=== PATIENT | female | born 1975 | race Caucasian/White ===

== ENCOUNTER 2017-01-13 18:34 | Emergency (ER) | payer MEDICAID ==
--- NOTE | 2017-01-13 18:46 | Emergency Department Record ---
History of Present Illness - General Chief complaint: Extremity Problem Stated complaint: LEFT ARM PAIN Time Seen by Provider: 01/13/17 18:45 Source: Patient - History of Present Illness Initial comments: The patient states that she has had pain in her elbow region of her arm on and off for 3-4 months. It worsens when she tries to pick remover heavy things with her left arm. she denies direct injury, but lifting against weight worsens her pain. She has tried excedrin for pain without relief. She was seen at another facility yesterday, got an xray, but left after waiting for 3 hours to be seen by a Dr. - Related Data Previous Rx's Medication Instructions Recorded Ibuprofen [Motrin] 800 mg PO Q8H #30 tab 01/13/17 Allergies Allergy/AdvReac Type Severity Reaction Status Date / Time No Known Drug Allergies Allergy Verified 01/13/17 18:40 Review of Systems Reviewed: No additional complaints except as noted below Constitutional: Reports: As per HPI. Denies: Chills, Fever, Malaise, Night sweats, Weakness, Weight change Eyes: Reports: As per HPI. Denies: Eye discharge, Eye pain, Photophobia, Vision change ENT: Reports: As per HPI. Denies: Congestion, Dental pain, Ear pain, Epistaxis , Hearing loss, Throat pain Respiratory: Reports: As per HPI. Denies: Cough, Dyspnea, Hemoptysis, Stridor, Wheezes Cardiovascular: Reports: As per HPI. Denies: Arrhythmia, Chest pain, Dyspnea on exertion, Edema, Murmurs, Orthopnea, Palpitations, Paroxysmal nocturnal dyspnea, Rheumatic Fever, Syncope Endocrine: Reports: As per HPI. Denies: Fatigue, Heat or cold intolerance, Polydipsia, Polyuria Gastrointestinal: Reports: As per HPI. Denies: Abdominal pain, Constipation, Diarrhea, Hematemesis, Hematochezia, Melena, Nausea, Vomiting Genitourinary: Reports: As per HPI. Denies: Abnormal menses, Discharge, Dyspareunia, Dysuria, Frequency, Hematuria, Incontinence, Retention, Urgency Musculoskeletal: Reports: As per HPI. Denies: Arthralgia, Back pain, Gout, Joint swelling, Myalgia, Neck pain Skin: Reports: As per HPI. Denies: Bruising, Change in color, Change in hair/ nails, Lesions, Pruritus, Rash Neurological: Reports: As per HPI. Denies: Abnormal gait, Confusion, Headache, Numbness, Paresthesias, Seizure, Tingling, Tremors, Vertigo, Weakness Psychiatric: Reports: As per HPI. Denies: Anxiety, Auditory hallucinations, Depression, Homicidal thoughts, Suicidal thoughts, Visual hallucinations Hematological/Lymphatic: Reports: As per HPI. Denies: Anemia, Blood Clots, Easy bleeding, Easy bruising, Swollen glands Physical Exam - General General Appearance: Alert, Oriented x3, Cooperative, No acute distress - Head Head exam: Normal inspection - Eye Eye exam: Normal appearance, PERRL Pupils: Normal accommodation - ENT ENT exam: Normal exam, Mucous membranes moist, Normal external ear exam, Normal orophraynx, TM's normal bilaterally Ear exam: Normal external inspection. negative: External canal tenderness Nasal Exam: Normal inspection. negative: Discharge, Sinus tenderness Mouth exam: Normal external inspection, Tongue normal Teeth exam: Normal inspection. negative: Dental caries Throat exam: Normal inspection. negative: Tonsillar erythema, Tonsillar exudate - Neck Neck exam: Normal inspection, Full ROM. negative: Tenderness - Respiratory Respiratory exam: Normal lung sounds bilaterally. negative: Respiratory distress - Cardiovascular Cardiovascular Exam: Regular rate, Normal rhythm, Normal heart sounds - GI/Abdominal GI/Abdominal exam: Soft, Normal bowel sounds. negative: Tenderness - Rectal Rectal exam: Deferred - exam: Deferred - Extremities Extremities exam: Normal inspection, Full ROM, Normal capillary refill, Tenderness (no point tenderness or bony tenderness. Painful when flexed against resistance over lateral epicondyl region of left elbow; CMs intact distally.) - Back Back exam: Reports: Normal inspection, Full ROM. Denies: Muscle spasm, Rash noted, Tenderness - Neurological Neurological exam: Alert, Normal gait, Oriented X3, Reflexes normal - Psychiatric Psychiatric exam: Normal affect, Normal mood - Skin Skin exam: Dry, Intact, Normal color, Warm Medical Decision Making - Management Options MDM Management: No Additional Work-up Planned Disposition Disposition: Discharge Clinical Impression: Tendinitis of left elbow Disposition: Home, Self-Care Condition: (1) Good Instructions: Tennis Elbow (ED), Tendinitis (ED) Additional Instructions: Jeffery wrap to left elbow. NO lifting with left arm for 1-2 weeks. Motrin 800 three times daily with food/antacid. Call PCP for recheck in7-10 days. Prescriptions: Ibuprofen [Motrin] 800 mg PO Q8H #30 tab Forms: Patient Portal Access Quality - Quality Measures Quality Measures: N/A - Blood Pressure Screening Does Patient Have Any of the Following: No Blood Pressure Classification: Hypertensive Reading Systolic Measurement: 140 Diastolic Measurement: 97 Screening for High Blood Pressure: < Pre-Hypertensive BP, F/U Documented > [ G8950] Pre-Hypertensive Follow-up Interventions: Follow-up with rescreen every year.
[2017-01-13] MEDS ORDERED: METHYLPREDNISOLONE PF 125MG/VIAL IM ONE (18:57)
[2017-01-13] MEDS ORDERED: KETOROLAC 30 MG/ML VIAL IM ONE (18:57)
== END 2017-01-13 19:33 | disposition home or self-care (01) ==
LOC: ER 18:34
DX: M77.12 Lateral epicondylitis, left elbow (principal)
CPT/HCPCS: 99283 ×2; 96372; J1885; J2930

== ENCOUNTER 2018-02-12 12:42 | Emergency (ER) | payer MEDICAID ==
[2018-02-12] MEDS ORDERED: IBUPROFEN 600 MG TABLET PO ONE (13:03)
--- NOTE | 2018-02-12 13:08 | Emergency Department Record ---
History of Present Illness - General Chief complaint: Lower Extremity Pain Stated complaint: rt ankle pain Time Seen by Provider: 02/12/18 12:57 Source: Patient Mode of Arrival: Ambulatory Limitations: No limitations - History of Present Illness Initial comments: The patient is here due to R ankle pain for about 3 days. She denies any known recent injury or trauma. She did sprain the ankle a couple of years ago and it has hurt off and on since. There has been no fever, chills, or rashes. The patient did go to [facility] last evening for it and did get an xray but due to the wait being to long she left before she was given the results. Complaint: Extremity pain Onset/Timin -: Days(s) Location: Right, Ankle History of Same: Yes Radiation: Distal Severity scale (1-10): 6 Quality: Aching Consistency: Constant Improves with: Nothing Worsens with: Nothing Associated Symptoms: Denies other symptoms - Related Data Previous Rx's Medication Instructions Recorded Naproxen [Naprosyn] 500 mg PO BID #14 tablet. 02/12/18 Allergies Allergy/AdvReac Type Severity Reaction Status Date / Time No Known Drug Allergies Allergy Verified 02/12/18 12:59 Travel Screening - Travel/Exposure Within Last 30 Days Have you traveled within the last 30 days?: No Review of Systems Constitutional: Denies: Chills, Fever Eyes: Denies: Eye discharge ENT: Denies: Congestion Respiratory: Denies: Cough, Dyspnea Past Medical History - SOCIAL HISTORY Smoking Status: Current every day smoker Alcohol Use: None Drug Use: None - RESPIRATORY Hx Respiratory Disorders: No - CARDIOVASCULAR Hx Cardio Disorders: No - NEURO Hx Neuro Disorders: No - GI Hx GI Disorders: No - Hx Genitourinary Disorders: No - ENDOCRINE Hx Endocrine Disorders: No - MUSCULOSKELETAL Hx Musculoskeletal Disorders: No - PSYCH Hx Psych Problems: No - HEMATOLOGY/ONCOLOGY Hx Hematology/Oncology Disorders: No Family Medical History Any Significant Family History?: Yes Physical Exam - General General Appearance: Alert, Cooperative, No acute distress - Head Head exam: Atraumatic, Normocephalic - Eye Eye exam: Normal appearance, PERRL - Extremities Extremities exam: Full ROM, Normal capillary refill, Tenderness, Other (There is no R ankle ligamentous laxity. DP pulses are 2+ and equal bilaterally.). negative: Normal inspection (There is very mild edema to the distal R fibular area with mild tenderness. There is no warmth, erythema, or abrasions present. ) , Joint swelling Course Vital Signs 02/12/18 12:54 Temperature 97.7 F Pulse Rate 74 Respiratory 20 Rate Blood Pressure 153/105 Pulse Ox 99 - Reevaluation(s) Reevaluation #1: The xray from last evening was reviewed and was neg for fx or dislocation. 02/12/18 13:13 Reevaluation #2: I did discuss the neg xrays with the patient. She is to ice and elevate the R ankle and use the brace for 5 days. She is to be off work for 3 days and see her PCP if not better on Saturday. 02/12/18 13:14 Medical Decision Making - Data Complexity MDM Data: X-Ray Ordered and/or Reviewed - Radiology Data Radiology results: Report reviewed (R Ankle: Neg for fx or dislocation from [facility]. ) Disposition Disposition: Discharge Clinical Impression: Ankle pain, right Qualifiers: Chronicity: acute Qualified Code(s): M25.571 - Pain in right ankle and joints of right foot Disposition: Home, Self-Care Condition: (2) Stable Instructions: Arthralgia (ED) Additional Instructions: Please ice and elevate the R ankle for the next 2 days and wear the splint for 5 days. Off work 3 days. Please use Naprosyn for pain and please see your family doctor if not better by Saturday. She also is to have her BP rechecked in the PCP's office. Prescriptions: Naproxen [Naprosyn] 500 mg PO BID #14 tablet.dr Forms: Patient Portal Access Time of Disposition: 13:17 Quality - Quality Measures Quality Measures: N/A - Blood Pressure Screening View Details: Yes Does Patient Have Any of the Following: No Blood Pressure Classification: Hypertensive Reading Systolic Measurement: 153 Diastolic Measurement: 105 Screening for High Blood Pressure: < First Hypertensive BP, F/U Documented > [ G8950] First Hypertensive Follow-up Interventions: Referral to alternative/primary care provider.
== END 2018-02-12 13:30 | disposition home or self-care (01) ==
LOC: ER 12:42
DX: M25.571 Pain in right ankle and joints of right foot (principal); F17.210 Nicotine dependence, cigarettes, uncomplicated
CPT/HCPCS: 99283